=== PATIENT | male | born 1985 | race Caucasian/White ===

== ENCOUNTER → 2017-08-14 | Emergency (ER) | payer MEDICAID ==
[~2017-08-14] VITALS: Ht 185.4 cm; Wt 144.0 kg
[~2017-08-14] MED LIST: CYCL-1 PO; HYDR-3965 PO; LIDO20SO16 PO; NO HOME MEDS; acetaminophen 325mg tablet PO ONE; ketorolac trometh inj. 60 MG/2 ML VIAL IM ONE
[2017-08-14 06:14] VITALS: BP 136/89
[2017-08-14 07:10] LABS: CLARITY,URINE CLEAR (Clear); COLOR,URINE YELLOW (Yellow); GLUCOSE, URINE NEGATIVE (Neg); KETONES,URINE NEGATIVE (Neg); LEUKOCYTE ESTERASE ,URINE NEGATIVE (Neg); NITRITES, URINE NEGATIVE (Neg); OCCULT BLOOD,URINE NEGATIVE (Neg); PROTEIN,URINE NEGATIVE (Neg); UROBILINOGEN,URINE 0.2 E.U/dL (0.2-1.0)
[2017-08-14 07:14] LABS: UA COLLECTION TYPE CLN CATCH MIDSTREAM
== END | disposition home or self-care (01) ==
LOC: ER 06:11
DX: S39.012A Strain of muscle, fascia and tendon of lower back, initial encounter (principal); Z87.442 Personal history of urinary calculi; Z88.0 Allergy status to penicillin; Z88.2 Allergy status to sulfonamides; Z88.8 Allergy status to other drugs, medicaments and biological substances; X50.1XXA Overexertion from prolonged static or awkward postures, initial encounter; Y93.89 Activity, other specified; Y92.89 Other specified places as the place of occurrence of the external cause; Y99.9 Unspecified external cause status
CPT/HCPCS: 81003; 96372; 99283; J1885

== ENCOUNTER 2017-08-18 06:03 | Emergency (ER) | payer MEDICAID ==
[~2017-08-18] VITALS: Ht 182.9 cm; Wt 144.0 kg
[~2017-08-18 06:03] MED LIST changes: -acetaminophen 325mg tablet PO ONE; -ketorolac trometh inj. 60 MG/2 ML VIAL IM ONE
[2017-08-18] MEDS ORDERED: ketorolac trometh inj. 60 MG/2 ML VIAL IM ONE (06:50)
[2017-08-18 07:59] VITALS: BP 126/91
[2017-08-18 08:05] LABS: CLARITY,URINE CLEAR (Clear); COLOR,URINE YELLOW (Yellow); GLUCOSE, URINE NEGATIVE (Neg); KETONES,URINE NEGATIVE (Neg); LEUKOCYTE ESTERASE ,URINE NEGATIVE (Neg); NITRITES, URINE NEGATIVE (Neg); OCCULT BLOOD,URINE NEGATIVE (Neg); PROTEIN,URINE NEGATIVE (Neg); UROBILINOGEN,URINE 0.2 E.U/dL (0.2-1.0)
[2017-08-18 08:14] LABS: UA COLLECTION TYPE CLN CATCH MIDSTREAM
== END 2017-08-18 09:48 | disposition home or self-care (01) ==
LOC: ER 06:04
DX: S39.012A Strain of muscle, fascia and tendon of lower back, initial encounter (principal); R10.31 Right lower quadrant pain; N20.0 Calculus of kidney; Z88.0 Allergy status to penicillin; Z88.2 Allergy status to sulfonamides; X50.0XXA Overexertion from strenuous movement or load, initial encounter; Y93.89 Activity, other specified; Y92.89 Other specified places as the place of occurrence of the external cause; Y99.8 Other external cause status
CPT/HCPCS: 74176; 81003; 96372; 99285; J1885

== ENCOUNTER 2018-05-03 08:58 | Emergency (ER) | payer MEDICAID ==
[~2018-05-03] VITALS: Ht 185.4 cm; Wt 118.5 kg
[~2018-05-03 08:58] MED LIST changes: -HYDR-3965 PO
[2018-05-03 09:00] VITALS: BP 137/96
[2018-05-03] MEDS ORDERED: TETanus/Pertussis (Acell)/Diphther VAC/PF (Tdap-Adult) 0.5ml syringe IM ONE (09:35)
[2018-05-03] MEDS ORDERED: TRIA15OI2 TOP (09:39)
[2018-05-03] MEDS ORDERED: TRAM50TA2 PO (09:39)
[2018-05-03] MEDS ORDERED: DOXY100C2 PO (09:39)
== END 2018-05-03 10:09 | disposition home or self-care (01) ==
LOC: ER 08:59
DX: L03.012 Cellulitis of left finger (principal); Z88.0 Allergy status to penicillin; Z88.2 Allergy status to sulfonamides; Z88.8 Allergy status to other drugs, medicaments and biological substances; Z79.899 Other long term (current) drug therapy
CPT/HCPCS: 87070; 87077; 87186; 90715; 99283

== ENCOUNTER 2018-12-13 14:09 | Emergency (ER) | payer MEDICAID ==
[~2018-12-13] VITALS: Ht 182.9 cm; Wt 123.0 kg
[~2018-12-13 14:09] MED LIST changes: +TRIA15OI2 TOP
[2018-12-13] MEDS ORDERED: CLIN-96 PO (14:29)
[2018-12-13] MEDS ORDERED: ACET-3068 PO (14:29)
== END 2018-12-13 14:40 | disposition home or self-care (01) ==
LOC: ER 14:09
DX: K02.9 Dental caries, unspecified (principal); G89.29 Other chronic pain; F17.200 Nicotine dependence, unspecified, uncomplicated; Z88.0 Allergy status to penicillin; Z88.2 Allergy status to sulfonamides; Z88.8 Allergy status to other drugs, medicaments and biological substances; Z79.2 Long term (current) use of antibiotics; Z79.899 Other long term (current) drug therapy
CPT/HCPCS: 99283

== ENCOUNTER 2019-01-08 23:18 | Emergency (ER) | payer MEDICAID ==
[~2019-01-08] VITALS: Ht 182.9 cm; Wt 136.4 kg
[~2019-01-08 23:18] MED LIST changes: +ACET-3068 PO; +CLIN-96 PO
[2019-01-08 23:41] LABS: BASOPHILS % (AUTO) 0.3 % (0-1); EOSINOPHILS # (AUTO) 0.1 X10'3 (0-0.9); EOSINOPHILS % (AUTO) 0.6 % (0-6); HEMATOCRIT 45.9 % (42.0-52.0); LYMPHOCYTES # (AUTO) 2.2 X10'3 (1.1-4.8); LYMPHOCYTES % (AUTO) 22.1 % (21-51); MEAN CORPUSCULAR HEMOGLOBIN 34.7 PG (27.0-31.0); MEAN CORPUSCULAR HGB CONC 34.8 g/dL (33.0-36.5); MEAN CORPUSCULAR VOLUME 99.6 FL (78-98); MEAN PLATELET VOLUME 9.8 FL (7.4-10.4); MONOCYTES # (AUTO) 0.8 X10'3 (0-0.9); NEUTROPHILS # (AUTO) 6.8 X10'3 (1.8-7.7); PLATELET COUNT 186 X10'3 (140-440); RED CELL DISTRIBUTION WIDTH 13.5 % (11.5-14.5); WHITE BLOOD COUNT 9.9 X10'3 (4.5-11.0)
[2019-01-08 23:55] LABS: ALANINE AMINOTRANSFERASE 37 U/L (12-78); ALBUMIN 3.9 G/DL (3.4-5.0); ALBUMIN/GLOBULIN RATIO 1.1 (1.1-1.5); ALKALINE PHOSPHATASE 63 IU/L (46-116); ANION GAP 7 (8-16); ASPARTATE AMINO TRANSFERASE 21 U/L (10-37); BILIRUBIN,TOTAL 0.5 MG/DL (0.1-1.0); BLOOD UREA NITROGEN 13 MG/DL (7-18); BUN/CREATININE RATIO 9.9 (5.4-32.0); CALCIUM 9.4 MG/DL (8.5-10.1); CHLORIDE 109 MMOL/L (99-107); CREATININE 1.31 MG/DL (0.60-1.10); GLUCOSE 115 MG/DL (70-104); POTASSIUM 3.7 MMOL/L (3.5-5.1); SODIUM 146 MMOL/L (135-145); TOTAL CARBON DIOXIDE 29.7 MMOL/L (24-32); TOTAL PROTEIN 7.5 G/DL (6.4-8.2); eGFR 63 ML/MIN
[2019-01-09] MEDS ORDERED: ondansetron/PF 4mg/2ml inj IV ONE
[2019-01-09] MEDS ORDERED: ketorolac trometh. 30mg/ml inj. IV ONE
--- NOTE | 2019-01-09 00:57 | NUR ---
PIV NOW IN PLACE. PT JUST GIVEN TORADOL AND ZOFRAN FOR PAIN OF 8 OUT OF 10.
[2019-01-09 00:58] VITALS: BP 136/82
--- NOTE | 2019-01-09 01:14 | NUR ---
DR SANTOS UPDATED THAT PT UNABLE TO VOID AND REPROTS EMESIS 7 TIMES TODAY. VERBAL RECEIVED FOR 1 LITER NS
[2019-01-09] MEDS ORDERED: normal saline 1000ML IV soln IVB ONE (01:15)
[2019-01-09] MEDS ORDERED: tamsulosin 0.4mg capsule PO SCH ×2 (01:20→21:00)
[2019-01-09] MEDS ORDERED: HYDR-4353 PO (01:52)
[2019-01-09] MEDS ORDERED: IBUP-1986 PO (01:52)
[2019-01-09] MEDS ORDERED: FLO0.4C PO (01:52)
== END 2019-01-09 02:19 | disposition home or self-care (01) ==
LOC: ER 23:19
DX: N20.1 Calculus of ureter (principal); G89.29 Other chronic pain; R11.2 Nausea with vomiting, unspecified; Z98.890 Other specified postprocedural states; Z88.0 Allergy status to penicillin; Z88.2 Allergy status to sulfonamides; Z88.8 Allergy status to other drugs, medicaments and biological substances; Z79.899 Other long term (current) drug therapy
CPT/HCPCS: 36415; 74176; 80053; 85025; 85610; 96374; 96375; 99284; J1885; J2405; J7030

== ENCOUNTER 2019-01-22 14:11 | Emergency (ER) | payer MEDICAID ==
[~2019-01-22] VITALS: Ht 182.9 cm; Wt 154.0 kg
[~2019-01-22 14:11] MED LIST changes: -ACET-3068 PO; +FLO0.4C PO; +HYDR-4353 PO; +IBUP-1986 PO
[2019-01-22] MEDS ORDERED: CLOT15CR5 TOP (14:54)
[2019-01-22 15:29] VITALS: BP 118/65
== END 2019-01-22 15:37 | disposition home or self-care (01) ==
LOC: ER 14:12
DX: L23.9 Allergic contact dermatitis, unspecified cause (principal); G89.29 Other chronic pain; Z98.890 Other specified postprocedural states; Z87.442 Personal history of urinary calculi; Z88.0 Allergy status to penicillin; Z88.2 Allergy status to sulfonamides; Z88.8 Allergy status to other drugs, medicaments and biological substances; Z79.899 Other long term (current) drug therapy
CPT/HCPCS: 99282

== ENCOUNTER 2019-01-24 13:18 | Emergency (ER) | payer MEDICAID ==
[~2019-01-24] VITALS: Ht 185.4 cm; Wt 150.0 kg
[~2019-01-24 13:18] MED LIST changes: +CLOT15CR5 TOP
[2019-01-24 13:27] VITALS: BP 123/80
[2019-01-24] MEDS ORDERED: DIPH25CA83 PO (14:00)
== END 2019-01-24 14:05 | disposition home or self-care (01) ==
LOC: ER 13:18
DX: R21 Rash and other nonspecific skin eruption (principal); L29.9 Pruritus, unspecified; G89.29 Other chronic pain; Z98.890 Other specified postprocedural states; Z88.0 Allergy status to penicillin; Z88.2 Allergy status to sulfonamides; Z88.8 Allergy status to other drugs, medicaments and biological substances; Z79.2 Long term (current) use of antibiotics; Z79.899 Other long term (current) drug therapy
CPT/HCPCS: 99282

== ENCOUNTER 2019-03-19 12:06 | Emergency (ER) | payer MEDICAID ==
[~2019-03-19] VITALS: Ht 182.9 cm; Wt 151.0 kg
[~2019-03-19 12:06] MED LIST changes: +CLIN-90 PO; -CLIN-96 PO; +DIPH25CA83 PO; -FLO0.4C PO; -HYDR-4353 PO; +LIDOcaine 1% w/EPI 1:100,000 30ml vial (MDV) ONE
[2019-03-19 12:20] VITALS: BP 124/84
[2019-03-19] MEDS ORDERED: DOXY100C2 PO (13:07)
== END 2019-03-19 13:18 | disposition home or self-care (01) ==
LOC: ER 12:07
DX: L02.211 Cutaneous abscess of abdominal wall (principal); G89.29 Other chronic pain; Z98.890 Other specified postprocedural states; Z88.0 Allergy status to penicillin; Z88.2 Allergy status to sulfonamides; Z88.8 Allergy status to other drugs, medicaments and biological substances; Z79.899 Other long term (current) drug therapy
CPT/HCPCS: 10060; 99283

== ENCOUNTER 2019-04-09 23:01 | Emergency (ER) | payer MEDICAID ==
[~2019-04-09] VITALS: Ht 185.4 cm; Wt 119.5 kg
[~2019-04-09 23:01] MED LIST changes: -LIDOcaine 1% w/EPI 1:100,000 30ml vial (MDV) ONE
[2019-04-09 23:22] VITALS: BP 155/108
[2019-04-10 00:29] LABS: CLARITY,URINE CLEAR (Clear); COLOR,URINE YELLOW (Yellow); GLUCOSE, URINE NEGATIVE (Neg); KETONES,URINE NEGATIVE (Neg); LEUKOCYTE ESTERASE ,URINE NEGATIVE (Neg); NITRITES, URINE NEGATIVE (Neg); OCCULT BLOOD,URINE NEGATIVE (Neg); PROTEIN,URINE NEGATIVE (Neg); UROBILINOGEN,URINE 0.2 E.U/dL (0.2-1.0)
[2019-04-10 00:31] LABS: UA COLLECTION TYPE CLN CATCH MIDSTREAM
== END 2019-04-10 00:59 | disposition home or self-care (01) ==
LOC: ER 23:02
DX: J22 Unspecified acute lower respiratory infection (principal); G89.29 Other chronic pain; Z87.442 Personal history of urinary calculi; Z98.890 Other specified postprocedural states; Z88.0 Allergy status to penicillin; Z88.2 Allergy status to sulfonamides; Z88.8 Allergy status to other drugs, medicaments and biological substances
CPT/HCPCS: 81003; 82948; 99283

== ENCOUNTER 2019-06-10 19:58 | Emergency (ER) | payer MEDICAID ==
[~2019-06-10] VITALS: Ht 185.4 cm; Wt 136.0 kg
[2019-06-10 21:27] VITALS: BP 148/89
== END 2019-06-10 21:29 | disposition home or self-care (01) ==
LOC: ER 19:58
DX: L03.012 Cellulitis of left finger (principal); G89.29 Other chronic pain; Z98.890 Other specified postprocedural states; Z88.0 Allergy status to penicillin; Z88.2 Allergy status to sulfonamides; Z88.8 Allergy status to other drugs, medicaments and biological substances; Z79.2 Long term (current) use of antibiotics; Z79.899 Other long term (current) drug therapy
CPT/HCPCS: 99281

== ENCOUNTER 2019-06-12 17:33 | Emergency (ER) | payer MEDICAID ==
[~2019-06-12] VITALS: Ht 185.4 cm; Wt 136.0 kg
[~2019-06-12 17:33] MED LIST changes: +LIDOcaine 1% 30ml preserv. free vial ONE
[2019-06-12 18:01] VITALS: BP 144/100
[2019-06-12] MEDS ORDERED: CEPH250T PO (19:16)
== END 2019-06-12 19:56 | disposition home or self-care (01) ==
LOC: ER 17:33
DX: L03.012 Cellulitis of left finger (principal); G89.29 Other chronic pain; Z87.442 Personal history of urinary calculi; Z98.890 Other specified postprocedural states; Z88.0 Allergy status to penicillin; Z88.2 Allergy status to sulfonamides
CPT/HCPCS: 10060; 99283; J2001

== ENCOUNTER 2019-08-11 02:14 | Emergency (ER) | payer MEDICAID ==
[~2019-08-11] VITALS: Ht 185.4 cm; Wt 136.0 kg
[~2019-08-11 02:14] MED LIST changes: -CLIN-90 PO; +CLIN-97 PO; -LIDOcaine 1% 30ml preserv. free vial ONE
[2019-08-11] MEDS ORDERED: LIDOcaine 1% 30ml preserv. free vial IJ ONE (03:10)
[2019-08-11] MEDS ORDERED: mupirocin 2% ointment 22GM TP STA (03:37)
[2019-08-11 03:49] VITALS: BP 147/97
== END 2019-08-11 03:52 | disposition home or self-care (01) ==
LOC: ER 02:14
DX: L03.012 Cellulitis of left finger (principal); G89.29 Other chronic pain; Z87.442 Personal history of urinary calculi; Z88.0 Allergy status to penicillin; Z88.2 Allergy status to sulfonamides; Z79.899 Other long term (current) drug therapy
CPT/HCPCS: 10060; 99282

== ENCOUNTER 2019-09-16 | Emergency (ER) | payer MEDICAID ==
[~2019-09-16] VITALS: Ht 185.4 cm; Wt 136.4 kg
[2019-09-16] VITALS: BP 153/98
[2019-09-16] MEDS ORDERED: ibuprofen tablet 400 MG TABLET PO ONE (00:10)
== END 2019-09-16 00:48 | disposition home or self-care (01) ==
LOC: ER
DX: M72.2 Plantar fascial fibromatosis (principal); G89.29 Other chronic pain; Z87.442 Personal history of urinary calculi; Z98.890 Other specified postprocedural states; Z88.0 Allergy status to penicillin; Z88.2 Allergy status to sulfonamides; Z79.899 Other long term (current) drug therapy
CPT/HCPCS: 99282

== ENCOUNTER 2019-11-03 17:25 | Emergency (ER) | payer MEDICAID ==
[~2019-11-03] VITALS: Ht 185.4 cm; Wt 129.6 kg
[~2019-11-03 17:25] MED LIST changes: +CLOT15CR35 TOP; -CLOT15CR5 TOP
[2019-11-03 17:35] VITALS: BP 162/97
[2019-11-03] MEDS ORDERED: ONDA4TAB6 PO (17:51)
[2019-11-03] MEDS ORDERED: HYDR-4383 PO (17:51)
== END 2019-11-03 18:09 | disposition home or self-care (01) ==
LOC: ER 17:26
DX: K08.89 Other specified disorders of teeth and supporting structures (principal); G89.29 Other chronic pain; Z98.890 Other specified postprocedural states; Z88.0 Allergy status to penicillin; Z88.2 Allergy status to sulfonamides; Z88.8 Allergy status to other drugs, medicaments and biological substances; Z79.2 Long term (current) use of antibiotics; Z79.899 Other long term (current) drug therapy
CPT/HCPCS: 99283

== ENCOUNTER 2020-02-27 15:23 | Emergency (ER) | payer MEDICAID ==
[~2020-02-27] VITALS: Ht 185.4 cm; Wt 136.4 kg
[~2020-02-27 15:23] MED LIST changes: +HYDR-4383 PO; +ONDA4TAB6 PO
[2020-02-27] MEDS ORDERED: predniSONE 20 mg tablet PO ONE (16:00)
[2020-02-27] MEDS ORDERED: PRED20TA PO (16:12)
[2020-02-27 16:25] VITALS: BP 161/94
== END 2020-02-27 16:27 | disposition home or self-care (01) ==
LOC: ER 15:24
DX: M72.2 Plantar fascial fibromatosis (principal); G89.29 Other chronic pain; F17.200 Nicotine dependence, unspecified, uncomplicated; Z87.442 Personal history of urinary calculi; Z98.890 Other specified postprocedural states; Z88.0 Allergy status to penicillin; Z88.2 Allergy status to sulfonamides; Z88.8 Allergy status to other drugs, medicaments and biological substances; Z79.2 Long term (current) use of antibiotics; Z79.899 Other long term (current) drug therapy
CPT/HCPCS: 99283; J7512

== ENCOUNTER 2020-04-04 18:15 | Emergency (ER) | payer MEDICAID ==
[~2020-04-04] VITALS: Ht 185.4 cm; Wt 150.3 kg
[2020-04-04 18:27] VITALS: BP 128/85
[2020-04-04] MEDS ORDERED: ketorolac trometh. 30mg/ml inj. IM ONE (18:50)
== END 2020-04-04 19:23 | disposition home or self-care (01) ==
LOC: ER 18:15
DX: M72.2 Plantar fascial fibromatosis (principal); J20.9 Acute bronchitis, unspecified; G89.29 Other chronic pain; Z87.448 Personal history of other diseases of urinary system; Z88.0 Allergy status to penicillin; Z88.2 Allergy status to sulfonamides; Z79.899 Other long term (current) drug therapy
CPT/HCPCS: 96372; 99283; J1885

== ENCOUNTER 2020-05-31 10:59 | Emergency (ER) | payer MEDICAID ==
[~2020-05-31] VITALS: Ht 185.4 cm; Wt 148.7 kg
[2020-05-31 11:02] VITALS: BP 123/91
[2020-05-31] MEDS ORDERED: ketorolac tromethamine 15mg/ml inj. IM ONE (11:35)
[2020-05-31] MEDS ORDERED: [UNRECOGNIZED DRUG - CODE] (11:40)
[2020-05-31] MEDS ORDERED: NAPR-56 PO (11:42)
== END 2020-05-31 12:18 | disposition home or self-care (01) ==
LOC: ER 11:00
DX: M72.2 Plantar fascial fibromatosis (principal); J40 Bronchitis, not specified as acute or chronic; G89.29 Other chronic pain; Z87.442 Personal history of urinary calculi; Z98.890 Other specified postprocedural states; Z88.0 Allergy status to penicillin; Z88.2 Allergy status to sulfonamides; Z88.8 Allergy status to other drugs, medicaments and biological substances; Z79.2 Long term (current) use of antibiotics; Z79.899 Other long term (current) drug therapy
CPT/HCPCS: 73630; 96372; 99283; J1885

== ENCOUNTER 2020-10-04 15:18 | Emergency (ER) | payer MEDICAID ==
[~2020-10-04] VITALS: Ht 185.4 cm; Wt 136.4 kg
[~2020-10-04 15:18] MED LIST changes: +FLUT16SP2 BOTHNARES; +GUAI120015 PO; +PSEU-259 PO; +[UNRECOGNIZED DRUG - CODE]
[2020-10-04 15:22] VITALS: BP 132/80
[2020-10-04] MEDS ORDERED: acetaminophen 325mg tablet PO ONE ×2 (16:50→17:30)
--- NOTE | 2020-10-04 16:58 | NUR ---
DC PAPERWORK READY, PATIENT NOT IN LOBBY. Addendum: 10/04/20 at 1730 by MARYANNE Pt. was moved to [facility]
== END 2020-10-04 17:01 | disposition home or self-care (01) ==
LOC: ER 15:18
DX: M72.2 Plantar fascial fibromatosis (principal); G89.29 Other chronic pain; Z87.442 Personal history of urinary calculi; Z98.890 Other specified postprocedural states; Z88.0 Allergy status to penicillin; Z88.2 Allergy status to sulfonamides; Z88.8 Allergy status to other drugs, medicaments and biological substances; Z79.2 Long term (current) use of antibiotics; Z79.899 Other long term (current) drug therapy
CPT/HCPCS: 99282

== ENCOUNTER 2021-06-24 14:48 | Emergency (ER) | payer MEDICAID ==
[~2021-06-24] VITALS: Ht 185.4 cm; Wt 160.6 kg
--- NOTE | 2021-06-24 15:30 | NUR ---
Pt out to [facility]
[2021-06-24] MEDS ORDERED: acetaminophen 325mg tablet PO ONE (16:25)
[2021-06-24] MEDS ORDERED: ketorolac trometh inj. 60 MG/2 ML VIAL IM ONE (16:25)
[2021-06-24] MEDS ORDERED: HYDR-3965 PO (16:27)
[2021-06-24 16:39] VITALS: BP 113/79
== END 2021-06-24 17:43 | disposition home or self-care (01) ==
LOC: ER 14:48
DX: S92.344A Nondisplaced fracture of fourth metatarsal bone, right foot, initial encounter for closed fracture (principal); S92.334A Nondisplaced fracture of third metatarsal bone, right foot, initial encounter for closed fracture; R55 Syncope and collapse; Z88.0 Allergy status to penicillin; Z79.899 Other long term (current) drug therapy; G89.29 Other chronic pain; M54.9 Dorsalgia, unspecified; W19.XXXA Unspecified fall, initial encounter; Y93.89 Activity, other specified; Y92.89 Other specified places as the place of occurrence of the external cause; Y99.8 Other external cause status; Z87.442 Personal history of urinary calculi
CPT/HCPCS: 29515; 70450; 72125; 73600; 73630; 93005; 96372; 99285; J1885

== ENCOUNTER 2021-06-26 20:22 | Emergency (ER) | payer MEDICAID ==
[~2021-06-26] VITALS: Ht 185.4 cm; Wt 145.4 kg
[~2021-06-26 20:22] MED LIST changes: +HYDR-3965 PO
[2021-06-26 20:24] VITALS: BP 147/97
[2021-06-26] MEDS ORDERED: HYDR-3965 PO (21:48)
[2021-06-26] MEDS ORDERED: ACET-3067 PO (21:51)
[2021-06-26] MEDS ORDERED: HYDR-3972 PO (21:56)
== END 2021-06-26 22:03 | disposition home or self-care (01) ==
LOC: ER 20:22
DX: S92.901D Unspecified fracture of right foot, subsequent encounter for fracture with routine healing (principal); M79.671 Pain in right foot; G89.29 Other chronic pain; Z87.442 Personal history of urinary calculi; Z98.890 Other specified postprocedural states; Z88.0 Allergy status to penicillin; Z88.2 Allergy status to sulfonamides; Z88.8 Allergy status to other drugs, medicaments and biological substances; Z79.2 Long term (current) use of antibiotics; Z79.899 Other long term (current) drug therapy; X58.XXXD Exposure to other specified factors, subsequent encounter
CPT/HCPCS: 99283

== ENCOUNTER 2021-09-26 06:31 | Emergency (ER) | payer MEDICAID ==
[~2021-09-26] VITALS: Ht 185.4 cm; Wt 136.4 kg
[~2021-09-26 06:31] MED LIST changes: -HYDR-3965 PO
[2021-09-26 06:44] VITALS: BP 142/98
[2021-09-26] MEDS: ketorolac trometh. 30mg/ml inj. IM ONE (07:31)
--- NOTE | 2021-09-26 07:35 | NUR ---
sample prep technician at bedside.
--- NOTE | 2021-09-26 07:50 | NUR ---
military technician is done with the study.
[2021-09-26] MEDS ORDERED: DOXY100C43 PO ×2 (08:05→08:28)
[2021-09-26] MEDS ORDERED: DOXY-243 PO (08:28)
== END 2021-09-26 08:32 | disposition home or self-care (01) ==
LOC: ER 06:31
DX: R60.0 Localized edema (principal); L03.115 Cellulitis of right lower limb; M79.604 Pain in right leg; G89.29 Other chronic pain; Z87.442 Personal history of urinary calculi; Z98.890 Other specified postprocedural states; Z88.0 Allergy status to penicillin; Z88.2 Allergy status to sulfonamides; Z88.8 Allergy status to other drugs, medicaments and biological substances; Z79.2 Long term (current) use of antibiotics; Z79.899 Other long term (current) drug therapy
CPT/HCPCS: 93971; 96372; 99284; J1885

== ENCOUNTER 2021-10-20 03:30 | Emergency (ER) | payer MEDICAID | END 2021-10-20 03:50 | disposition left against medical advice (07) | LOC: ER 03:31 | DX: M79.673 Pain in unspecified foot (principal); Z53.21 Procedure and treatment not carried out due to patient leaving prior to being seen by health care provider ==

== ENCOUNTER 2021-12-30 12:41 | Emergency (ER) | payer MEDICAID ==
[~2021-12-30] VITALS: Ht 185.4 cm; Wt 136.4 kg
[2021-12-30 13:34] LABS: BASOPHILS % (AUTO) 0.6 % (0-1); EOSINOPHILS # (AUTO) 0.2 X10'3 (0-0.9); EOSINOPHILS % (AUTO) 2.8 % (0-6); HEMATOCRIT 40.9 % (42.0-52.0); HEMOGLOBIN 14.2 g/dl (14.0-17.9); LYMPHOCYTES # (AUTO) 0.8 X10'3 (1.1-4.8); LYMPHOCYTES % (AUTO) 11.7 % (21-51); MEAN CORPUSCULAR HEMOGLOBIN 34.5 PG (27.0-31.0); MEAN CORPUSCULAR HGB CONC 34.8 g/dL (33.0-36.5); MEAN CORPUSCULAR VOLUME 99.3 FL (78-98); MEAN PLATELET VOLUME 10.1 FL (7.4-10.4); MONOCYTES # (AUTO) 0.6 X10'3 (0-0.9); MONOCYTES % (AUTO) 8.4 % (2-12); NEUTROPHILS # (AUTO) 5.5 X10'3 (1.8-7.7); NEUTROPHILS % (AUTO) 76.5 % (42-75); PLATELET COUNT 165 X10'3 (140-440); RED BLOOD COUNT 4.12 X10'6 (4.70-6.10); RED CELL DISTRIBUTION WIDTH 13.9 % (11.5-14.5); WHITE BLOOD COUNT 7.2 X10'3 (4.5-11.0)
[2021-12-30 13:43] LABS: ALANINE AMINOTRANSFERASE 29 U/L (12-78); ALBUMIN 3.5 G/DL (3.4-5.0); ALKALINE PHOSPHATASE 66 IU/L (46-116); ANION GAP 6 (8-16); ASPARTATE AMINO TRANSFERASE 20 U/L (10-37); BILIRUBIN,TOTAL 0.7 MG/DL (0.1-1.0); BLOOD UREA NITROGEN 8 MG/DL (7-18); BUN/CREATININE RATIO 7.4 (5.4-32.0); CALCIUM 8.9 MG/DL (8.5-10.1); CHLORIDE 107 MMOL/L (99-107); CREATININE 1.08 MG/DL (0.60-1.10); GLUCOSE 108 MG/DL (70-104); POTASSIUM 3.6 MMOL/L (3.5-5.1); SODIUM 142 MMOL/L (135-145); eGFR 77 ML/MIN
[2021-12-30] MEDS ORDERED: mag hydrox/Alum hydrox/simeth 30ml oral suspension PO ONE (14:15)
[2021-12-30] MEDS ORDERED: LIDOcaine Viscous 15ml cup MM ONE (14:15)
[2021-12-30] MEDS ORDERED: FAMO-117 PO (14:18)
[2021-12-30 17:19] VITALS: BP 156/92
== END 2021-12-30 17:21 | disposition home or self-care (01) ==
LOC: ER 12:41
DX: R07.9 Chest pain, unspecified (principal); R05.9 Cough, unspecified; Z87.442 Personal history of urinary calculi; G89.29 Other chronic pain; M54.9 Dorsalgia, unspecified; Z88.0 Allergy status to penicillin; Z88.2 Allergy status to sulfonamides; Z79.899 Other long term (current) drug therapy; Z79.2 Long term (current) use of antibiotics
CPT/HCPCS: 36415; 71045; 80053; 83880; 84484; 85025; 93005; 99285

== ENCOUNTER 2022-06-08 10:45 | Emergency (ER) | payer MEDICAID ==
[~2022-06-08] VITALS: Ht 185.4 cm; Wt 136.4 kg
[~2022-06-08 10:45] MED LIST changes: +FAMO-117 PO
[2022-06-08 10:58] LABS: BASOPHILS # (AUTO) 0.1 X10'3 (0-0.2); BASOPHILS % (AUTO) 0.8 % (0-1); EOSINOPHILS # (AUTO) 0.2 X10'3 (0-0.9); EOSINOPHILS % (AUTO) 3.6 % (0-6); HEMATOCRIT 43.8 % (42.0-52.0); LYMPHOCYTES # (AUTO) 1.7 X10'3 (1.1-4.8); LYMPHOCYTES % (AUTO) 25.9 % (21-51); MEAN CORPUSCULAR HEMOGLOBIN 34.6 PG (27.0-31.0); MEAN CORPUSCULAR HGB CONC 34.4 g/dL (33.0-36.5); MEAN CORPUSCULAR VOLUME 100.8 FL (78-98); MONOCYTES # (AUTO) 0.6 X10'3 (0-0.9); MONOCYTES % (AUTO) 9.6 % (2-12); NEUTROPHILS % (AUTO) 60.1 % (42-75); PLATELET COUNT 234 X10'3 (140-440); RED BLOOD COUNT 4.35 X10'6 (4.70-6.10); RED CELL DISTRIBUTION WIDTH 13.5 % (11.5-14.5); WHITE BLOOD COUNT 6.6 X10'3 (4.5-11.0)
[2022-06-08 11:21] LABS: ALANINE AMINOTRANSFERASE 28 U/L (12-78); ALBUMIN 3.4 G/DL (3.4-5.0); ALBUMIN/GLOBULIN RATIO 0.9 (1.1-1.5); ALKALINE PHOSPHATASE 66 IU/L (46-116); ANION GAP 4 (8-16); ASPARTATE AMINO TRANSFERASE 19 U/L (10-37); BILIRUBIN,TOTAL 0.3 MG/DL (0.1-1.0); BLOOD UREA NITROGEN 9 MG/DL (7-18); BUN/CREATININE RATIO 10.6 (5.4-32.0); CALCIUM 9.1 MG/DL (8.5-10.1); CHLORIDE 107 MMOL/L (99-107); CREATININE 0.85 MG/DL (0.60-1.10); GLUCOSE 105 MG/DL (70-104); MAGNESIUM 2.1 MG/DL (1.5-2.4); SODIUM 140 MMOL/L (135-145); TOTAL CARBON DIOXIDE 28.6 MMOL/L (24-32); TOTAL PROTEIN 7.1 G/DL (6.4-8.2); eGFR > 90 ML/MIN
[2022-06-08] MEDS ORDERED: ipratropium/albuterol 3ml nebule NEB ONE (11:40)
--- NOTE | 2022-06-08 11:42 | NUR ---
RT PAGED BY THANG QUIROS.
--- NOTE | 2022-06-08 11:54 | NUR ---
RT AT BEDSIDE.
--- NOTE | 2022-06-08 12:40 | NUR ---
CHARGE NURSE RN NOTIFIED OF GENERAL ASSESSMENT DONE FOR REVIEW.
[2022-06-08] MEDS ORDERED: ALBU8HFA PO (13:16)
[2022-06-08 13:39] VITALS: BP 133/77
== END 2022-06-08 13:41 | disposition home or self-care (01) ==
LOC: ER 10:45
DX: J04.0 Acute laryngitis (principal); J98.01 Acute bronchospasm; R05.9 Cough, unspecified; G89.29 Other chronic pain; Z87.442 Personal history of urinary calculi; Z98.890 Other specified postprocedural states; Z59.00 Homelessness unspecified; Z88.0 Allergy status to penicillin; Z88.2 Allergy status to sulfonamides; Z88.8 Allergy status to other drugs, medicaments and biological substances; Z79.2 Long term (current) use of antibiotics; Z79.899 Other long term (current) drug therapy
CPT/HCPCS: 36415; 80053; 83735; 83880; 84484; 85025; 87081; 87880; 93005; 94640; 94760; 99285

== ENCOUNTER 2022-06-13 12:40 | Emergency (ER) | payer MEDICAID ==
[~2022-06-13] VITALS: Ht 185.4 cm; Wt 136.0 kg
[~2022-06-13 12:40] MED LIST changes: +ALBU8HFA PO
[2022-06-13 12:42] VITALS: BP 138/90
== END 2022-06-13 14:58 | disposition home or self-care (01) ==
LOC: ER 12:40
DX: L03.116 Cellulitis of left lower limb (principal); L03.115 Cellulitis of right lower limb; G89.29 Other chronic pain; Z87.442 Personal history of urinary calculi; Z98.890 Other specified postprocedural states; Z59.00 Homelessness unspecified; Z88.0 Allergy status to penicillin; Z88.2 Allergy status to sulfonamides; Z79.2 Long term (current) use of antibiotics; Z79.899 Other long term (current) drug therapy
CPT/HCPCS: 99281; A6222; A6449

== ENCOUNTER → 2022-06-18 | Emergency (ER) | payer MEDICAID ==
[~2022-06-18] VITALS: Ht 185.4 cm; Wt 136.0 kg
[2022-06-18 14:37] VITALS: BP 159/86
[2022-06-18 15:08] LABS: BASOPHILS # (AUTO) 0.1 X10'3 (0-0.2); BASOPHILS % (AUTO) 0.8 % (0-1); EOSINOPHILS # (AUTO) 0.2 X10'3 (0-0.9); EOSINOPHILS % (AUTO) 2.5 % (0-6); HEMATOCRIT 42.4 % (42.0-52.0); HEMOGLOBIN 14.4 g/dl (14.0-17.9); LYMPHOCYTES # (AUTO) 1.8 X10'3 (1.1-4.8); LYMPHOCYTES % (AUTO) 22.2 % (21-51); MEAN CORPUSCULAR HEMOGLOBIN 34.6 PG (27.0-31.0); MEAN CORPUSCULAR HGB CONC 33.9 g/dL (33.0-36.5); MEAN CORPUSCULAR VOLUME 101.9 FL (78-98); MEAN PLATELET VOLUME 8.9 FL (7.4-10.4); MONOCYTES # (AUTO) 0.7 X10'3 (0-0.9); MONOCYTES % (AUTO) 8.9 % (2-12); NEUTROPHILS # (AUTO) 5.2 X10'3 (1.8-7.7); NEUTROPHILS % (AUTO) 65.6 % (42-75); PLATELET COUNT 214 X10'3 (140-440); RED BLOOD COUNT 4.16 X10'6 (4.70-6.10); RED CELL DISTRIBUTION WIDTH 13.7 % (11.5-14.5); WHITE BLOOD COUNT 7.9 X10'3 (4.5-11.0)
[2022-06-18 15:34] LABS: ALANINE AMINOTRANSFERASE 28 U/L (12-78); ALBUMIN 3.5 G/DL (3.4-5.0); ALBUMIN/GLOBULIN RATIO 0.9 (1.1-1.5); ALKALINE PHOSPHATASE 69 IU/L (46-116); ANION GAP 6 (8-16); ASPARTATE AMINO TRANSFERASE 22 U/L (10-37); BILIRUBIN,TOTAL 0.7 MG/DL (0.1-1.0); BLOOD UREA NITROGEN 8 MG/DL (7-18); CALCIUM 9.2 MG/DL (8.5-10.1); CHLORIDE 104 MMOL/L (99-107); GLUCOSE 108 MG/DL (70-104); POTASSIUM 3.5 MMOL/L (3.5-5.1); SODIUM 142 MMOL/L (135-145); TOTAL CARBON DIOXIDE 31.7 MMOL/L (24-32); TOTAL PROTEIN 7.2 G/DL (6.4-8.2); eGFR 84 ML/MIN
[2022-06-18 17:06] LABS: CLARITY,URINE SLIGHTLY CLOUDY (Clear); COLOR,URINE YELLOW (Yellow); GLUCOSE, URINE NEGATIVE (Neg); KETONES,URINE NEGATIVE (Neg); LEUKOCYTE ESTERASE ,URINE NEGATIVE (Neg); NITRITES, URINE NEGATIVE (Neg); OCCULT BLOOD,URINE NEGATIVE (Neg); PH,URINE 6.5 (4.8-8.0); PROTEIN,URINE TRACE mg/dl (Neg); UROBILINOGEN,URINE 0.2 E.U/dL (0.2-1.0)
[2022-06-18 17:27] LABS: URINE AMPHETAMINE SCREEN NEGATIVE (Neg); URINE BARBITUATE SCREEN NEGATIVE (Neg); URINE BENZODIAZEPINES SCREEN NEGATIVE (Neg); URINE CANNABINOID SCREEN NEGATIVE (Neg); URINE COCAINE SCREEN NEGATIVE (Neg); URINE METHADONE SCREEN NEGATIVE (Neg); URINE OPIATE SCREEN NEGATIVE (Neg); URINE PHENCYCLIDINE SCREEN NEGATIVE (Neg)
[2022-06-18 17:30] LABS: UA COLLECTION TYPE VOIDED
[2022-06-18 17:48] LABS: BACTERIA,URINE 1+ /HPF (Neg); MUCUS STRANDS FEW /LPF (Neg); SQUAMOUS EPITHELIAL CELL,UR FEW /LPF (FEW)
[2022-06-18 17:49] LABS: CAL OXALATE CRYSTALS FEW /HPF (NEGATIVE); RENAL CELLS, URINE FEW /HPF; WBC CLUMPS,URINE FEW /HPF (NEGATIVE)
== END | disposition home or self-care (01) ==
LOC: ER 14:36
DX: S80.812A Abrasion, left lower leg, initial encounter (principal); Z48.00 Encounter for change or removal of nonsurgical wound dressing; G89.29 Other chronic pain; M54.50 Low back pain, unspecified; Z88.0 Allergy status to penicillin; Z88.2 Allergy status to sulfonamides; Z87.891 Personal history of nicotine dependence; Z59.00 Homelessness unspecified; X58.XXXA Exposure to other specified factors, initial encounter; Y93.89 Activity, other specified; Y92.89 Other specified places as the place of occurrence of the external cause; Y99.8 Other external cause status
CPT/HCPCS: 36415; 71045; 80053; 80305; 81001; 83605; 83735; 83880; 84145; 85025; 87040; 87077; 87088; 87186; 93005; 99285

== ENCOUNTER 2022-07-29 22:30 | Emergency (ER) | payer MEDICAID ==
[~2022-07-29] VITALS: Ht 185.4 cm; Wt 136.4 kg
[~2022-07-29 22:30] MED LIST changes: -ALBU8HFA PO
[2022-07-29 23:08] LABS: HEMOGLOBIN 14.8 g/dl (14.0-17.9)
[2022-07-29 23:09] LABS: BASOPHILS % (AUTO) 0.7 % (0-1); EOSINOPHILS # (AUTO) 0.2 X10'3 (0-0.9); EOSINOPHILS % (AUTO) 2.4 % (0-6); HEMATOCRIT 42.4 % (42.0-52.0); LYMPHOCYTES % (AUTO) 29.7 % (21-51); MEAN CORPUSCULAR HEMOGLOBIN 35.2 PG (27.0-31.0); MEAN CORPUSCULAR VOLUME 100.6 FL (78-98); MEAN PLATELET VOLUME 9.2 FL (7.4-10.4); MONOCYTES # (AUTO) 0.7 X10'3 (0-0.9); MONOCYTES % (AUTO) 10.1 % (2-12); NEUTROPHILS # (AUTO) 3.9 X10'3 (1.8-7.7); NEUTROPHILS % (AUTO) 57.1 % (42-75); PLATELET COUNT 201 X10'3 (140-440); RED BLOOD COUNT 4.22 X10'6 (4.70-6.10); RED CELL DISTRIBUTION WIDTH 13.5 % (11.5-14.5); WHITE BLOOD COUNT 6.8 X10'3 (4.5-11.0)
[2022-07-29 23:15] LABS: ALANINE AMINOTRANSFERASE 23 U/L (12-78); ALBUMIN 3.5 G/DL (3.4-5.0); ALKALINE PHOSPHATASE 63 IU/L (46-116); ANION GAP 5 (8-16); ASPARTATE AMINO TRANSFERASE 21 U/L (10-37); BILIRUBIN,TOTAL 0.3 MG/DL (0.1-1.0); BLOOD UREA NITROGEN 12 MG/DL (7-18); BUN/CREATININE RATIO 11.9 (10.0-20.0); CALCIUM 9.2 MG/DL (8.5-10.1); CHLORIDE 105 MMOL/L (99-107); CREATININE 1.01 MG/DL (0.60-1.10); GLUCOSE 94 MG/DL (70-104); POTASSIUM 3.7 MMOL/L (3.5-5.1); SODIUM 141 MMOL/L (135-145); TOTAL CARBON DIOXIDE 30.7 MMOL/L (24-32); eGFR 83 ML/MIN
[2022-07-29 23:22] LABS: MAGNESIUM 2.2 MG/DL (1.5-2.4)
[2022-07-29] MEDS ORDERED: furosemide 10 MG/1 ML 10ml inj IV ONE (23:35)
--- NOTE | 2022-07-29 23:52 | NUR ---
VAS PAGED AT [id number]
--- NOTE | 2022-07-30 00:40 | NUR ---
Patient with rn cardiovascular icu
--- NOTE | 2022-07-30 04:36 | NUR ---
Patient resting comfortably, waiting on vascular report
--- NOTE | 2022-07-30 05:49 | NUR ---
Daughter Gretchen Joseph [phone] called and said we have to admit the patient, she can't go back to her custodial, they said she needs a higher level of care. The daughter says she is confused and combative, we just have to find somewhere for her to go. She can't go home to them, she is working and can't care for her either. I advised he she really needed to come speak with outreach and education social worker, but her not coming is abandonment.
[2022-07-30 06:18] VITALS: BP 123/72
== END 2022-07-30 06:24 | disposition home or self-care (01) ==
LOC: ER 22:31
DX: R07.89 Other chest pain (principal); I82.811 Embolism and thrombosis of superficial veins of right lower extremity; R06.02 Shortness of breath; F17.200 Nicotine dependence, unspecified, uncomplicated; G89.29 Other chronic pain; Z79.899 Other long term (current) drug therapy; Z87.442 Personal history of urinary calculi; Z98.890 Other specified postprocedural states; Z59.00 Homelessness unspecified; Z88.0 Allergy status to penicillin; Z88.2 Allergy status to sulfonamides; Z88.8 Allergy status to other drugs, medicaments and biological substances
CPT/HCPCS: 36415; 71045; 80053; 83735; 83880; 84484; 85025; 93005; 93971; 96374; 99285; J1940

== ENCOUNTER 2022-08-05 20:53 | Emergency (ER) | payer MEDICAID ==
[~2022-08-05] VITALS: Ht 182.9 cm; Wt 136.6 kg
[2022-08-05 21:19] LABS: BASOPHILS # (AUTO) 0.1 X10'3 (0-0.2); BASOPHILS % (AUTO) 1.2 % (0-1); EOSINOPHILS # (AUTO) 0.3 X10'3 (0-0.9); EOSINOPHILS % (AUTO) 3.9 % (0-6); HEMATOCRIT 41.9 % (42.0-52.0); HEMOGLOBIN 14.1 g/dl (14.0-17.9); LYMPHOCYTES # (AUTO) 2.3 X10'3 (1.1-4.8); LYMPHOCYTES % (AUTO) 34.1 % (21-51); MEAN CORPUSCULAR HEMOGLOBIN 33.8 PG (27.0-31.0); MEAN CORPUSCULAR HGB CONC 33.7 g/dL (33.0-36.5); MEAN CORPUSCULAR VOLUME 100.3 FL (78-98); MEAN PLATELET VOLUME 8.9 FL (7.4-10.4); MONOCYTES # (AUTO) 0.8 X10'3 (0-0.9); MONOCYTES % (AUTO) 11.5 % (2-12); NEUTROPHILS # (AUTO) 3.3 X10'3 (1.8-7.7); NEUTROPHILS % (AUTO) 49.3 % (42-75); PLATELET COUNT 233 X10'3 (140-440); RED BLOOD COUNT 4.18 X10'6 (4.70-6.10); RED CELL DISTRIBUTION WIDTH 13.2 % (11.5-14.5); WHITE BLOOD COUNT 6.7 X10'3 (4.5-11.0)
[2022-08-05 22:04] LABS: ALANINE AMINOTRANSFERASE 26 U/L (12-78); ALBUMIN 3.3 G/DL (3.4-5.0); ALBUMIN/GLOBULIN RATIO 0.8 (1.1-1.5); ALKALINE PHOSPHATASE 58 IU/L (46-116); ANION GAP 9 (8-16); ASPARTATE AMINO TRANSFERASE 21 U/L (10-37); BILIRUBIN,TOTAL 0.3 MG/DL (0.1-1.0); BLOOD UREA NITROGEN 12 MG/DL (7-18); CALCIUM 9.1 MG/DL (8.5-10.1); CHLORIDE 105 MMOL/L (99-107); CREATININE 0.92 MG/DL (0.60-1.10); GLUCOSE 95 MG/DL (70-104); POTASSIUM 3.9 MMOL/L (3.5-5.1); SODIUM 141 MMOL/L (135-145); TOTAL CARBON DIOXIDE 27.2 MMOL/L (24-32); TOTAL PROTEIN 7.2 G/DL (6.4-8.2); eGFR > 90 ML/MIN
[2022-08-05 22:12] LABS: MAGNESIUM 2.1 MG/DL (1.5-2.4)
[2022-08-05] MEDS ORDERED: ALBU8HFA PO (23:00)
[2022-08-05] MEDS ORDERED: GUAI400T92 PO (23:00)
[2022-08-05] MEDS ORDERED: PRED20TA PO (23:01)
[2022-08-05 23:23] VITALS: BP 145/87
== END 2022-08-05 23:24 | disposition home or self-care (01) ==
LOC: ER 20:55
DX: R05.9 Cough, unspecified (principal); R06.02 Shortness of breath; G89.29 Other chronic pain; I50.9 Heart failure, unspecified; Z87.442 Personal history of urinary calculi; Z59.00 Homelessness unspecified; Z88.0 Allergy status to penicillin; Z88.2 Allergy status to sulfonamides; Z88.8 Allergy status to other drugs, medicaments and biological substances; Z79.899 Other long term (current) drug therapy
CPT/HCPCS: 36415; 71046; 80053; 83735; 83880; 84484; 85025; 93005; 99285

== ENCOUNTER 2022-08-06 00:51 | Emergency (ER) | payer MEDICAID ==
[~2022-08-06] VITALS: Ht 182.9 cm; Wt 136.9 kg
[~2022-08-06 00:51] MED LIST changes: +ALBU8HFA PO; +GUAI400T92 PO; +PRED20TA PO
[2022-08-06 02:00] VITALS: BP 153/89
== END 2022-08-06 02:02 | disposition home or self-care (01) ==
LOC: ER 00:51
DX: S80.921S Unspecified superficial injury of right lower leg, sequela (principal); X58.XXXS Exposure to other specified factors, sequela; I11.0 Hypertensive heart disease with heart failure; G89.29 Other chronic pain; M54.9 Dorsalgia, unspecified; Z88.0 Allergy status to penicillin; Z88.2 Allergy status to sulfonamides; Z79.899 Other long term (current) drug therapy; Z79.1 Long term (current) use of non-steroidal anti-inflammatories (NSAID); Z79.2 Long term (current) use of antibiotics
CPT/HCPCS: 99281; A6212; A6213; A6449

== ENCOUNTER 2022-10-22 03:56 | Emergency (ER) | payer MEDICAID ==
[~2022-10-22] VITALS: Ht 185.4 cm; Wt 136.4 kg
[~2022-10-22 03:56] MED LIST changes: -ALBU8HFA PO; +CLIN300C54 PO; +DOXY-411 PO; +HYDR-3973 PO; -PRED20TA PO
[2022-10-22] MEDS ORDERED: acetaminophen 325mg tablet PO ONE (04:05)
[2022-10-22] MEDS ORDERED: ketorolac trometh. 30mg/ml inj. IV ONE (04:05)
[2022-10-22 04:30] LABS: CLARITY,URINE SLIGHTLY CLOUDY (Clear); COLOR,URINE YELLOW (Yellow); GLUCOSE, URINE NEGATIVE (Neg); KETONES,URINE NEGATIVE (Neg); LEUKOCYTE ESTERASE ,URINE NEGATIVE (Neg); NITRITES, URINE NEGATIVE (Neg); OCCULT BLOOD,URINE NEGATIVE (Neg); PROTEIN,URINE NEGATIVE (Neg); UROBILINOGEN,URINE 0.2 E.U/dL (0.2-1.0)
[2022-10-22 04:31] LABS: UA COLLECTION TYPE CLN CATCH MIDSTREAM
[2022-10-22 04:35] LABS: SQUAMOUS EPITHELIAL CELL,UR MANY /LPF (FEW)
[2022-10-22 04:36] LABS: CAL OXALATE CRYSTALS 4+ /HPF (NEGATIVE); MUCUS STRANDS MODERATE /LPF (Neg)
[2022-10-22 04:37] LABS: WBC,URINE 20-30 /HPF (0-4)
[2022-10-22 04:38] LABS: BACTERIA,URINE 1+ /HPF (Neg)
[2022-10-22 05:02] LABS: BASOPHILS # (AUTO) 0.1 X10'3 (0-0.2); BASOPHILS % (AUTO) 1.1 % (0-1); EOSINOPHILS # (AUTO) 0.2 X10'3 (0-0.9); EOSINOPHILS % (AUTO) 3.7 % (0-6); HEMATOCRIT 43.5 % (42.0-52.0); HEMOGLOBIN 14.7 g/dl (14.0-17.9); MEAN CORPUSCULAR HGB CONC 33.8 g/dL (33.0-36.5); MEAN CORPUSCULAR VOLUME 100.8 FL (78-98); MEAN PLATELET VOLUME 10.1 FL (7.4-10.4); MONOCYTES # (AUTO) 0.7 X10'3 (0-0.9); MONOCYTES % (AUTO) 11.2 % (2-12); NEUTROPHILS # (AUTO) 3.2 X10'3 (1.8-7.7); PLATELET COUNT 181 X10'3 (140-440); RED BLOOD COUNT 4.32 X10'6 (4.70-6.10); RED CELL DISTRIBUTION WIDTH 14.4 % (11.5-14.5); WHITE BLOOD COUNT 6.2 X10'3 (4.5-11.0)
[2022-10-22 05:15] LABS: ALANINE AMINOTRANSFERASE 24 U/L (12-78); ALBUMIN 3.5 G/DL (3.4-5.0); ALBUMIN/GLOBULIN RATIO 1.1 (1.1-1.5); ALKALINE PHOSPHATASE 70 IU/L (46-116); ANION GAP 5 (8-16); ASPARTATE AMINO TRANSFERASE 21 U/L (10-37); BILIRUBIN,TOTAL 0.3 MG/DL (0.1-1.0); BLOOD UREA NITROGEN 13 MG/DL (7-18); CALCIUM 8.9 MG/DL (8.5-10.1); CHLORIDE 106 MMOL/L (99-107); CREATININE 1.08 MG/DL (0.60-1.10); GLUCOSE 107 MG/DL (70-104); LIPASE 110 U/L (73-393); POTASSIUM 4.1 MMOL/L (3.5-5.1); SODIUM 142 MMOL/L (135-145); TOTAL CARBON DIOXIDE 30.8 MMOL/L (24-32); TOTAL PROTEIN 6.7 G/DL (6.4-8.2); eGFR 77 ML/MIN
[2022-10-22] MEDS ORDERED: CEPH-585 PO (05:19)
[2022-10-22 06:27] VITALS: BP 112/62
== END 2022-10-22 07:05 | disposition home or self-care (01) ==
LOC: ER 03:57
DX: N39.0 Urinary tract infection, site not specified (principal); F17.200 Nicotine dependence, unspecified, uncomplicated; I50.9 Heart failure, unspecified; G89.29 Other chronic pain; M54.9 Dorsalgia, unspecified; Z59.00 Homelessness unspecified; Z88.0 Allergy status to penicillin; Z88.2 Allergy status to sulfonamides; Z88.8 Allergy status to other drugs, medicaments and biological substances; Z79.1 Long term (current) use of non-steroidal anti-inflammatories (NSAID); Z79.2 Long term (current) use of antibiotics
CPT/HCPCS: 36415; 74176; 80053; 81001; 83690; 85025; 96374; 99285; J1885

== ENCOUNTER 2023-02-01 03:32 | Emergency (ER) | payer MEDICAID ==
[~2023-02-01] VITALS: Ht 185.4 cm; Wt 139.8 kg
[~2023-02-01 03:32] MED LIST changes: +CEPH-585 PO; -HYDR-3973 PO
[2023-02-01 03:50] VITALS: BP 140/86; PULSE 71; RESP 18; TEMP 97.2; O2SAT 100
[2023-02-01] MEDS ORDERED: acetaminophen 325mg tablet PO ONE (05:10)
[2023-02-01 05:15] LABS: BILIRUBIN,URINE SMALL (Neg); CLARITY,URINE TURBID (Clear); COLOR,URINE AMBER (Yellow); GLUCOSE, URINE NEGATIVE (Neg); KETONES,URINE TRACE mg/dl (Neg); LEUKOCYTE ESTERASE ,URINE NEGATIVE (Neg); NITRITES, URINE NEGATIVE (Neg); OCCULT BLOOD,URINE LARGE (Neg); PH,URINE 5.5 (4.8-8.0); PROTEIN,URINE 100 mg/dl (Neg); UROBILINOGEN,URINE 0.2 E.U/dL (0.2-1.0)
[2023-02-01 05:35] LABS: UA COLLECTION TYPE CLN CATCH MIDSTREAM
[2023-02-01 05:36] LABS: SQUAMOUS EPITHELIAL CELL,UR MANY /LPF (FEW)
[2023-02-01 05:37] LABS: RBC,URINE TNTC /HPF (0-2)
[2023-02-01 05:41] LABS: BACTERIA,URINE 4+ /HPF (Neg)
[2023-02-01] MEDS ORDERED: CefTRIAXone/D5W-Rocephin 1gm 50 ML IV ONE (06:05)
[2023-02-01 06:11] LABS: ALANINE AMINOTRANSFERASE 23 U/L (12-78); ALBUMIN 3.7 G/DL (3.4-5.0); ALBUMIN/GLOBULIN RATIO 1.1 (1.1-1.5); ALKALINE PHOSPHATASE 76 IU/L (46-116); ANION GAP 8 (8-16); ASPARTATE AMINO TRANSFERASE 18 U/L (10-37); BILIRUBIN,TOTAL 0.7 MG/DL (0.1-1.0); BLOOD UREA NITROGEN 9 MG/DL (7-18); BUN/CREATININE RATIO 9.2 (10.0-20.0); CALCIUM 9.4 MG/DL (8.5-10.1); CHLORIDE 105 MMOL/L (99-107); CREATININE 0.98 MG/DL (0.60-1.10); GLUCOSE 102 MG/DL (70-104); LIPASE 52 U/L (73-393); POTASSIUM 3.8 MMOL/L (3.5-5.1); SODIUM 140 MMOL/L (135-145); TOTAL CARBON DIOXIDE 26.9 MMOL/L (24-32); TOTAL PROTEIN 7.2 G/DL (6.4-8.2); eCRCL 116 ML/MIN; eGFR 86 ML/MIN
[2023-02-01] MEDS ORDERED: ketorolac trometh. 30mg/ml inj. IV ONE (06:45)
[2023-02-01 08:39] LABS: BASOPHILS % (AUTO) 0.4 % (0-1); EOSINOPHILS % (AUTO) 0.3 % (0-6); HEMATOCRIT 41.9 % (42.0-52.0); HEMOGLOBIN 14.3 g/dl (14.0-17.9); LYMPHOCYTES # (AUTO) 1.2 X10'3 (1.1-4.8); LYMPHOCYTES % (AUTO) 16.6 % (21-51); MEAN CORPUSCULAR HGB CONC 34.2 g/dL (33.0-36.5); MEAN CORPUSCULAR VOLUME 102.2 FL (78-98); MEAN PLATELET VOLUME 10.4 FL (7.4-10.4); MONOCYTES # (AUTO) 0.5 X10'3 (0-0.9); MONOCYTES % (AUTO) 7.2 % (2-12); NEUTROPHILS # (AUTO) 5.4 X10'3 (1.8-7.7); NEUTROPHILS % (AUTO) 75.5 % (42-75); PLATELET COUNT 110 X10'3 (140-440); WHITE BLOOD COUNT 7.1 X10'3 (4.5-11.0)
[2023-02-01] MEDS ORDERED: ONDA4TAB12 PO (09:22)
[2023-02-01] MEDS ORDERED: FLO0.4C PO (09:22)
[2023-02-01] MEDS ORDERED: NAPR-56 PO (09:22)
== END 2023-02-01 09:52 | disposition home or self-care (01) ==
LOC: ER 03:33
DX: N20.0 Calculus of kidney (principal); I50.9 Heart failure, unspecified; G89.29 Other chronic pain; Z98.890 Other specified postprocedural states; Z59.00 Homelessness unspecified; Z88.0 Allergy status to penicillin; Z88.2 Allergy status to sulfonamides; Z88.8 Allergy status to other drugs, medicaments and biological substances; Z79.2 Long term (current) use of antibiotics; Z79.899 Other long term (current) drug therapy
CPT/HCPCS: 36415; 74176; 80053; 81001; 83690; 85025; 87088; 96365; 96366; 96375; 99285; J0696; J1885

== ENCOUNTER 2023-07-29 01:47 | Emergency (ER) | payer MEDICAID ==
[~2023-07-29] VITALS: Ht 185.4 cm; Wt 137.0 kg
[~2023-07-29 01:47] MED LIST changes: +ONDA4TAB12 PO
[2023-07-29 04:52] LABS: BASOPHILS % (AUTO) 0.7 % (0-1); EOSINOPHILS # (AUTO) 0.2 X10'3 (0-0.9); EOSINOPHILS % (AUTO) 3.2 % (0-6); HEMATOCRIT 42.2 % (42.0-52.0); HEMOGLOBIN 14.2 g/dl (14.0-17.9); LYMPHOCYTES # (AUTO) 2.1 X10'3 (1.1-4.8); LYMPHOCYTES % (AUTO) 31.9 % (21-51); MEAN CORPUSCULAR HEMOGLOBIN 34.2 PG (27.0-31.0); MEAN CORPUSCULAR HGB CONC 33.8 g/dL (33.0-36.5); MEAN CORPUSCULAR VOLUME 101.5 FL (78-98); MEAN PLATELET VOLUME 9.1 FL (7.4-10.4); MONOCYTES # (AUTO) 0.7 X10'3 (0-0.9); NEUTROPHILS # (AUTO) 3.5 X10'3 (1.8-7.7); NEUTROPHILS % (AUTO) 53.2 % (42-75); PLATELET COUNT 197 X10'3 (140-440); RED BLOOD COUNT 4.16 X10'6 (4.70-6.10); RED CELL DISTRIBUTION WIDTH 13.7 % (11.5-14.5); WHITE BLOOD COUNT 6.5 X10'3 (4.5-11.0)
[2023-07-29 05:02] LABS: BILIRUBIN,URINE NEGATIVE (Neg); CLARITY,URINE CLEAR (Clear); COLOR,URINE YELLOW (Yellow); GLUCOSE, URINE NEGATIVE (Neg); KETONES,URINE TRACE mg/dl (Neg); LEUKOCYTE ESTERASE ,URINE NEGATIVE (Neg); NITRITES, URINE NEGATIVE (Neg); OCCULT BLOOD,URINE NEGATIVE (Neg); PROTEIN,URINE NEGATIVE (Neg); UROBILINOGEN,URINE 0.2 E.U/dL (0.2-1.0)
[2023-07-29] MEDS: oxyCODONE/APAP 10/325mg tablet PO STA (05:03)
[2023-07-29 05:04] LABS: UA COLLECTION TYPE CLN CATCH MIDSTREAM
[2023-07-29] MEDS: levoFLOXACIN-Levaquin 750MG/D5 150 ML IV STA (05:06)
[2023-07-29 05:18] LABS: ALANINE AMINOTRANSFERASE 27 U/L (12-78); ALBUMIN 3.1 G/DL (3.4-5.0); ALBUMIN/GLOBULIN RATIO 0.8 (1.1-1.5); ALKALINE PHOSPHATASE 74 IU/L (46-116); ANION GAP 6 (8-16); ASPARTATE AMINO TRANSFERASE 30 U/L (10-37); BILIRUBIN,TOTAL 0.3 MG/DL (0.1-1.0); BLOOD UREA NITROGEN 14 MG/DL (7-18); BUN/CREATININE RATIO 13.1 (10.0-20.0); CALCIUM 8.5 MG/DL (8.5-10.1); CHLORIDE 106 MMOL/L (99-107); CREATININE 1.07 MG/DL (0.60-1.10); GLUCOSE 93 MG/DL (70-104); MAGNESIUM 1.9 MG/DL (1.5-2.4); POTASSIUM 3.5 MMOL/L (3.5-5.1); SODIUM 143 MMOL/L (135-145); TOTAL CARBON DIOXIDE 31.1 MMOL/L (24-32); TOTAL PROTEIN 6.8 G/DL (6.4-8.2); eCRCL 106 ML/MIN; eGFR 77 ML/MIN
[2023-07-29] MEDS ORDERED: TRAM50TA2 PO (06:07)
[2023-07-29] MEDS ORDERED: DOXY100C77 PO (06:07)
[2023-07-29 06:35] VITALS: BP 148/89; PULSE 89; RESP 20; TEMP 98; O2SAT 98
== END 2023-07-29 06:36 | disposition home or self-care (01) ==
LOC: ER 01:48
DX: L03.115 Cellulitis of right lower limb (principal); I50.9 Heart failure, unspecified; Z88.0 Allergy status to penicillin; Z88.2 Allergy status to sulfonamides; Z79.2 Long term (current) use of antibiotics; Z79.899 Other long term (current) drug therapy
CPT/HCPCS: 36415; 71045; 80053; 81003; 83605; 83735; 84145; 85025; 87040; 93005; 93971; 96365; 99285; J1956

== ENCOUNTER 2023-08-07 22:15 | Emergency (ER) | payer MEDICAID ==
[~2023-08-07] VITALS: Ht 182.9 cm; Wt 136.4 kg
[~2023-08-07 22:15] MED LIST changes: +DOXY100C77 PO
[2023-08-07 22:30] VITALS: TEMP 98.3
[2023-08-08] MEDS ORDERED: LIDO30CR TOP (00:25)
[2023-08-08] MEDS ORDERED: CAPS60CR6 TOP (00:25)
[2023-08-08 00:34] VITALS: BP 101/67
[2023-08-08] MEDS: HYDROcodone/acetaminophen 5mg/325mg tablet PO ONE (00:35)
[2023-08-08] MEDS: LIDOcaine/PRILOcaine 5gm cream TP ONE (00:35)
[2023-08-08 00:56] VITALS: PULSE 100; RESP 16; O2SAT 100
== END 2023-08-08 00:57 | disposition home or self-care (01) ==
LOC: ER 22:16
DX: I99.8 Other disorder of circulatory system (principal); G62.9 Polyneuropathy, unspecified; I50.9 Heart failure, unspecified; Z88.0 Allergy status to penicillin; Z88.2 Allergy status to sulfonamides; Z88.8 Allergy status to other drugs, medicaments and biological substances; Z79.2 Long term (current) use of antibiotics; Z79.1 Long term (current) use of non-steroidal anti-inflammatories (NSAID)
CPT/HCPCS: 99283

== ENCOUNTER 2023-08-19 22:12 | Emergency (ER) | payer MEDICAID ==
[~2023-08-19] VITALS: Ht 185.4 cm; Wt 136.4 kg
[~2023-08-19 22:12] MED LIST changes: +CAPS60CR6 TOP; -DOXY100C77 PO; +LIDO30CR TOP
[2023-08-19 22:27] VITALS: BP 140/81; PULSE 84; RESP 16; TEMP 98.3; O2SAT 100
[2023-08-20] MEDS: ketoconazole 2% cream 15gm TP ONE (03:45)
== END 2023-08-20 03:48 | disposition home or self-care (01) ==
LOC: ER 22:12
DX: B35.3 Tinea pedis (principal); I50.9 Heart failure, unspecified; Z88.0 Allergy status to penicillin; Z88.2 Allergy status to sulfonamides; Z88.8 Allergy status to other drugs, medicaments and biological substances; Z79.1 Long term (current) use of non-steroidal anti-inflammatories (NSAID); Z79.2 Long term (current) use of antibiotics
CPT/HCPCS: 99282

== ENCOUNTER 2023-12-28 05:22 | Emergency (ER) | payer MEDICAID ==
[~2023-12-28 05:22] MED LIST changes: -CAPS60CR6 TOP; -CEPH-585 PO; +ONDA-243 PO; -ONDA4TAB12 PO
[2023-12-28 05:24] VITALS: TEMP 97.1
[2023-12-28] MEDS: normal saline 1000ml 1,000 ML IV ONE (06:40)
[2023-12-28 06:57] LABS: ALANINE AMINOTRANSFERASE 22 U/L (12-78); ALBUMIN 3.7 G/DL (3.4-5.0); ALKALINE PHOSPHATASE 69 IU/L (46-116); ANION GAP 8 (8-16); ASPARTATE AMINO TRANSFERASE 16 U/L (10-37); BILIRUBIN,TOTAL 0.4 MG/DL (0.1-1.0); BLOOD UREA NITROGEN 13 MG/DL (7-18); BUN/CREATININE RATIO 11.3 (10.0-20.0); CALCIUM 9.3 MG/DL (8.5-10.1); CHLORIDE 106 MMOL/L (99-107); CREATININE 1.15 MG/DL (0.60-1.10); GLUCOSE 106 MG/DL (70-104); POTASSIUM 3.3 MMOL/L (3.5-5.1); SODIUM 144 MMOL/L (135-145); TOTAL CARBON DIOXIDE 29.8 MMOL/L (24-32); TOTAL PROTEIN 7.5 G/DL (6.4-8.2); eGFR 71 ML/MIN
[2023-12-28 07:05] LABS: PRO BRAIN NATRIURETIC PEPTIDE 40 PG/ML (0-125)
[2023-12-28 07:35] LABS: BASOPHILS % (AUTO) 0.5 % (0-1); EOSINOPHILS # (AUTO) 0.1 X10'3 (0-0.9); EOSINOPHILS % (AUTO) 0.7 % (0-6); HEMATOCRIT 44.3 % (42.0-52.0); HEMOGLOBIN 15.1 g/dl (14.0-17.9); LYMPHOCYTES # (AUTO) 1.1 X10'3 (1.1-4.8); LYMPHOCYTES % (AUTO) 12.5 % (21-51); MEAN CORPUSCULAR HEMOGLOBIN 34.7 PG (27.0-31.0); MEAN CORPUSCULAR HGB CONC 34.1 g/dL (33.0-36.5); MEAN CORPUSCULAR VOLUME 101.9 FL (78-98); MEAN PLATELET VOLUME 9.9 FL (7.4-10.4); MONOCYTES # (AUTO) 0.6 X10'3 (0-0.9); MONOCYTES % (AUTO) 6.7 % (2-12); NEUTROPHILS # (AUTO) 6.9 X10'3 (1.8-7.7); NEUTROPHILS % (AUTO) 79.6 % (42-75); PLATELET COUNT 172 X10'3 (140-440); RED BLOOD COUNT 4.35 X10'6 (4.70-6.10); WHITE BLOOD COUNT 8.7 X10'3 (4.5-11.0)
[2023-12-28 08:30] VITALS: BP 148/76; PULSE 76; RESP 16; O2SAT 98
== END 2023-12-28 08:32 | disposition home or self-care (01) ==
LOC: ER 05:22
DX: R20.0 Anesthesia of skin (principal); R06.02 Shortness of breath; R00.0 Tachycardia, unspecified; I50.9 Heart failure, unspecified; G89.29 Other chronic pain; M54.9 Dorsalgia, unspecified; Z88.0 Allergy status to penicillin; Z88.2 Allergy status to sulfonamides; Z79.899 Other long term (current) drug therapy; Z79.2 Long term (current) use of antibiotics
CPT/HCPCS: 36415; 80053; 82948; 83880; 84484; 85025; 93005; 96360; 99285; J7030

== ENCOUNTER 2024-03-19 18:50 | Emergency (ER) | payer MEDICAID ==
[~2024-03-19] VITALS: Ht 185.4 cm; Wt 136.4 kg
[2024-03-19 20:43] LABS: BILIRUBIN,URINE NEGATIVE (Neg); CLARITY,URINE CLEAR (Clear); COLOR,URINE YELLOW (Yellow); GLUCOSE, URINE NEGATIVE (Neg); KETONES,URINE NEGATIVE (Neg); LEUKOCYTE ESTERASE ,URINE NEGATIVE (Neg); NITRITES, URINE NEGATIVE (Neg); OCCULT BLOOD,URINE MODERATE (Neg); PH,URINE 5.5 (4.8-8.0); PROTEIN,URINE 30 mg/dl (Neg); UROBILINOGEN,URINE 0.2 E.U/dL (0.2-1.0)
[2024-03-19 20:45] LABS: UA COLLECTION TYPE CLN CATCH MIDSTREAM
[2024-03-19 20:52] LABS: SQUAMOUS EPITHELIAL CELL,UR MANY /LPF (FEW)
[2024-03-19 20:53] LABS: CAL OXALATE CRYSTALS 3+ /HPF (NEGATIVE)
[2024-03-19 20:54] LABS: BACTERIA,URINE FEW /HPF (Neg); RBC,URINE 0-2 /HPF (0-2); WBC,URINE 50-100 /HPF (0-4)
[2024-03-19] MEDS: DOXYCYCLINE 100MG CAPSULE PO STA (22:29)
[2024-03-19] MEDS: CefTRIAXone 1000mg IM Kit (w/lidocaine diluent) IM ONE (22:30)
[2024-03-19] MEDS ORDERED: DOXY-460 PO (23:11)
[2024-03-19 23:42] VITALS: BP 126/81; PULSE 71; RESP 17; TEMP 97.9; O2SAT 97
[2024-03-23 05:20] LABS: CHLAMYDIA TRACHOMATIS, NAA Negative (Negative)
== END 2024-03-19 23:44 | disposition home or self-care (01) ==
LOC: ER 18:50
DX: N30.81 Other cystitis with hematuria (principal); K80.80 Other cholelithiasis without obstruction; G62.89 Other specified polyneuropathies; I50.9 Heart failure, unspecified; G89.29 Other chronic pain; M54.9 Dorsalgia, unspecified; Z88.0 Allergy status to penicillin; Z88.2 Allergy status to sulfonamides; Z88.8 Allergy status to other drugs, medicaments and biological substances; Z79.1 Long term (current) use of non-steroidal anti-inflammatories (NSAID); Z79.52 Long term (current) use of systemic steroids; Z79.899 Other long term (current) drug therapy; Z87.442 Personal history of urinary calculi; Z59.00 Homelessness unspecified
CPT/HCPCS: 36415; 74176; 81001; 87491; 87591; 96372; 99285; J0696